=== PATIENT | female | born 1970 | race Caucasian/White ===

== ENCOUNTER → 2022-08-05 | Outpatient (CLI) | payer BC ==
[2022-08-05 23:51] LABS: Follicle Stimulating Hormone 13.8 mIU/mL; Luteinizing Hormone 5.6 mIU/mL; Prolactin 49.8 ng/mL (2.800-29.200); T4, Free (Free Thyroxine) 0.78 ng/dL (0.800-1.800)
[2022-08-06 00:33] LABS: ACTH 36.1 pg/mL (0.00-45.99)
== END | disposition home or self-care (01) ==
LOC: LABWHC1 15:16
PROVIDERS: ATTEND Internal Medicine Endocrinology, Diabetes & Metabolism
DX: D35.2 Benign neoplasm of pituitary gland (principal)
CPT/HCPCS: 36415; 82024; 82533; 83001; 83002; 84146; 84305; 84439; 84443; 84480

== ENCOUNTER → 2024-06-03 | Outpatient (CLI) | payer OTHER ==
[2024-06-04 02:59] LABS: T4, Free (Free Thyroxine) 1.05 ng/dL (0.80-1.80)
[2024-06-04 03:10] LABS: Prolactin 87.5 ng/mL (2.800-29.200)
[2024-06-04 05:14] LABS: ACTH 14.1 pg/mL (0.00-45.99)
== END | disposition home or self-care (01) ==
LOC: LABWHC1 16:05
PROVIDERS: ATTEND Internal Medicine Endocrinology, Diabetes & Metabolism
DX: D35.2 Benign neoplasm of pituitary gland (principal)
CPT/HCPCS: 36415; 82024; 82533; 84146; 84305; 84439; 84443; 84480

== ENCOUNTER → 2024-07-19 | Outpatient (CLI) | payer OTHER ==
[2024-07-19 23:11] LABS: ALT 17 U/L (8-44); AST 19 U/L (13-35); Albumin 4.6 g/dL (3.8-4.9); Albumin/Globulin Ratio 2.42 Ratio (1.60-3.17); Alkaline Phosphatase 65 U/L (41-126); BUN/Creat Ratio 19.25 Ratio (12.00-20.00); Blood Urea Nitrogen 15.4 mg/dL (9.0-27.0); Chloride 100 mmol/L (96-109); Globulin 1.9 g/dL (1.6-3.3); Glucose 84 mg/dL (70-110); Sodium 136 mmol/L (135-145); Total Bilirubin <0.2 mg/dL (0.3-1.2); Total Protein 6.5 g/dL (6.2-8.2)
[2024-07-19 23:13] LABS: Follicle Stimulating Hormone 2.6 mIU/mL; Luteinizing Hormone <1.0 mIU/mL
[2024-07-20 20:37] LABS: ACTH 15.4 pg/mL (0.00-45.99)
== END ==
LOC: LABWHC1 14:44
PROVIDERS: ATTEND Internal Medicine Endocrinology, Diabetes & Metabolism
DX: D35.2 Benign neoplasm of pituitary gland (principal)
CPT/HCPCS: 36415; 80053; 82024; 82533; 83001; 83002; 84146; 84439; 84443; 84480

== ENCOUNTER → 2024-09-23 | Outpatient (CLI) | payer BC ==
[2024-09-23 15:21] LABS: T4, Free (Free Thyroxine) 1.18 ng/dL (0.80-1.80)
== END | disposition home or self-care (01) ==
LOC: LABWHC1 12:15
PROVIDERS: ATTEND Internal Medicine Endocrinology, Diabetes & Metabolism
DX: D35.2 Benign neoplasm of pituitary gland (principal)
CPT/HCPCS: 36415; 82024; 82533; 84146; 84305; 84439; 84443; 84480